=== PATIENT | female | born 1955 | race Caucasian/White ===

== ENCOUNTER 2018-03-05 10:56 | Day surgery (SDC) | payer OTHER ==
[~2018-03-05] VITALS: Ht 170.2 cm; Wt 99.4 kg
[~2018-03-05 10:56] MED LIST: ARIP10 PO; Adipex-P37.5 MG PO; BENZ2 PO; BUPR150ER PO; Benztropine Mesy1 MG PO; CEPH500 PO; Flomax0.4 MG PO; KETO10 PO; Keflex500 MG PO; LEXAPRO; Lexapro 2020 MG PO; MAGCIT300 PO; METF500 PO; MIRAPEX ER0.375 MG; Minocycline HC100 MG PO; OMEP20ER PO; OXYB5 PO; OXYC5 PO; Percocet 5-3251 EACH PO; Pyridium100 MG PO; SEROQUEL; TEGRETOL; TRAZADONE; TRILEPTAL; WELBUTRIN
== END 2018-03-05 14:02 | disposition home or self-care (01) ==
LOC: ORSCSDS 10:56
PROVIDERS: Orthopaedic Surgery
PROC: 01N54ZZ Release Median Nerve, Percutaneous Endoscopic Approach (ICD-10-PCS; principal; 2018-03-05 12:30)
DX: G56.01 Carpal tunnel syndrome, right upper limb (principal); E11.9 Type 2 diabetes mellitus without complications; I10 Essential (primary) hypertension; F32.9 Major depressive disorder, single episode, unspecified; K21.9 Gastro-esophageal reflux disease without esophagitis; G47.33 Obstructive sleep apnea (adult) (pediatric); E66.9 Obesity, unspecified; Z68.34 Body mass index [BMI] 34.0-34.9, adult; Z79.84 Long term (current) use of oral hypoglycemic drugs; Z79.899 Other long term (current) drug therapy
CPT/HCPCS: 82947; J0690; J2250; J3010; J7120

== ENCOUNTER → 2018-04-21 | Outpatient (CLI) | payer OTHER | END | disposition home or self-care (01) | LOC: LAB SHORT 13:55 → LAB 13:55 | DX: E11.9 Type 2 diabetes mellitus without complications (principal) | CPT/HCPCS: 82043 ==

== ENCOUNTER 2018-08-20 06:05 | Day surgery (SDC) | payer OTHER ==
[~2018-08-20] VITALS: Ht 167.6 cm; Wt 101.8 kg
--- NOTE | 2018-08-20 10:48 | NUR ---
08/20/18 1048 Manda Vizcarra V PT RESTING IN RECLINER, OPERATIVE LIMB ELEVATED AND ICE APPLIED. PT REPORTS PAIN 7/10 FOR WHICH SHE HAS BEEN MEDICATED PER ORDERS. VSS. PTS FAMILY MEMBER AT CHAIR-SIDE, PT TOLERATING PO NURISHMENT.
== END 2018-08-20 12:55 | disposition home or self-care (01) ==
LOC: ORSCSDS 06:05
PROVIDERS: Orthopaedic Surgery
PROC: 0RQT0ZZ Repair Left Carpometacarpal Joint, Open Approach (ICD-10-PCS; principal; 2018-08-20 07:30)
PROC: 0LX80ZZ Transfer Left Hand Tendon, Open Approach (ICD-10-PCS; principal; 2018-08-20 07:30)
DX: M18.12 Unilateral primary osteoarthritis of first carpometacarpal joint, left hand (principal); E11.9 Type 2 diabetes mellitus without complications; G47.33 Obstructive sleep apnea (adult) (pediatric); K21.9 Gastro-esophageal reflux disease without esophagitis; E66.01 Morbid (severe) obesity due to excess calories; Z68.36 Body mass index [BMI] 36.0-36.9, adult; Z79.899 Other long term (current) drug therapy
CPT/HCPCS: 82947; C1769; J0171; J0360; J0690; J1100; J2250; J2405; J3010; J7120

== ENCOUNTER 2018-08-22 18:56 | Emergency (ER) | payer OTHER ==
[~2018-08-22] VITALS: Ht 167.6 cm; Wt 102.1 kg
[2018-08-22] MEDS ORDERED: OXYC5 PO (19:34)
[2018-08-22] MEDS ORDERED: Zofran4 MG PO (19:36)
== END 2018-08-22 19:51 | disposition home or self-care (01) ==
LOC: ER 18:56
DX: R11.2 Nausea with vomiting, unspecified (principal); Z79.899 Other long term (current) drug therapy; Z79.84 Long term (current) use of oral hypoglycemic drugs; F32.9 Major depressive disorder, single episode, unspecified; Z90.49 Acquired absence of other specified parts of digestive tract
CPT/HCPCS: 99283

== ENCOUNTER → 2019-07-24 | Outpatient (CLI) | payer OTHER ==
[~2019-07-24] MED LIST changes: +ARMODAFINIL150 MG PO; +TOPI50 PO; +Zofran4 MG PO
== END | disposition home or self-care (01) ==
LOC: LAB EV 16:58 → LAB SHORT 16:58
DX: N39.0 Urinary tract infection, site not specified (principal)
CPT/HCPCS: 87086

== ENCOUNTER 2019-09-24 16:28 | Emergency (ER) | payer OTHER ==
[~2019-09-24] VITALS: Ht 170.2 cm; Wt 85.7 kg
[2019-09-24 17:27] LABS: Source, Urine Clean Catch
[2019-09-24 17:30] LABS: Bilirubin, Urine Neg (Neg); Blood, Urine Neg (Neg); Glucose Qualitative, Urine Neg (Neg); Ketones, Urine Neg (Neg); Leukocyte Esterase, Urine 1+ (Neg); Nitrite, Urine Neg (Neg); Protein, Urine Neg (Neg); Urobilinogen, Urine NORM (Normal)
[2019-09-24 17:42] LABS: Appearance, Urine Clear (Clear); Color, Urine Pale Yellow (P-Yellow)
[2019-09-24 17:44] LABS: Red Blood Cells, Urine 0-2 /hpf (0-2); Squamous Epithelial Cells Rare /hpf (Few)
[2019-09-24 17:45] LABS: Bacteria Rare /hpf
[2019-09-24] MEDS ORDERED: Phentermine HCl15 MG PO (20:19)
[2019-09-24] MEDS ORDERED: PRAM.5 PO (20:20)
[2019-09-24] MEDS ORDERED: HYDR1TAB94 PO (20:58)
[2019-09-24] MEDS ORDERED: MOTRIN IB200 MG PO (20:58)
== END 2019-09-24 21:00 | disposition home or self-care (01) ==
LOC: ER 16:28
PROVIDERS: Physician Assistant
DX: M43.16 Spondylolisthesis, lumbar region (principal); F31.9 Bipolar disorder, unspecified; G47.30 Sleep apnea, unspecified; Z79.899 Other long term (current) drug therapy; Z79.84 Long term (current) use of oral hypoglycemic drugs
CPT/HCPCS: 74176; 81001; 87086; 96372; 99284-25; J1885

== ENCOUNTER 2020-01-02 21:26 | Emergency (ER) | payer OTHER ==
[~2020-01-02] VITALS: Ht 170.2 cm; Wt 90.7 kg
[~2020-01-02 21:26] MED LIST changes: +HYDR1TAB94 PO; +MOTRIN IB200 MG PO; +PRAM.5 PO; +Phentermine HCl15 MG PO
[2020-01-02 22:32] LABS: Source, Urine Clean Catch
[2020-01-02 22:34] LABS: Bilirubin, Urine Neg (Neg); Blood, Urine 1+ (Neg); Glucose Qualitative, Urine Neg (Neg); Ketones, Urine Neg (Neg); Leukocyte Esterase, Urine Neg (Neg); Nitrite, Urine Neg (Neg); Protein, Urine Neg (Neg); Urobilinogen, Urine NORM (Normal)
[2020-01-02 22:41] LABS: BASOPHILS ABSOLUTE AUTO 0.11 K/mm3 (0.00-0.23); BASOPHILS PERCENT AUTO 1 % (0-2); EOSINOPHILS ABSOLUTE AUTO 0.56 K/mm3 (0.00-0.68); EOSINOPHILS PERCENT AUTO 4 % (0-6); Hematocrit 43.7 % (33.0-51.0); Hemoglobin 14.1 g/dL (11.5-16.0); IMMATURE GRAN ABSOLUTE AUTO 0.05 K/mm3 (0.00-0.10); IMMATURE GRAN PERCENT AUTO 0 % (0-1); LYMPHOCYTES ABSOLUTE AUTO 6.51 K/mm3 (0.84-5.20); LYMPHOCYTES PERCENT AUTO 48 % (21-46); MONOCYTES PERCENT AUTO 7 % (4-13); Mean Corpuscular HGB 29.5 pg (26.0-34.0); Mean Corpuscular HGB Conc 32.3 g/dL (31.5-36.5); Mean Corpuscular Volume 91 fL (80-100); Mean Platelet Volume 10.1 fL (9.1-12.4); NEUTROPHILS ABSOLUTE AUTO 5.55 K/mm3 (1.96-9.15); NEUTROPHILS PERCENT AUTO 41 % (41-73); Platelet Count 292 K/mm3 (150-400); RDW Standard Deviation 43.4 fL (35.1-46.3); Red Blood Cell Count 4.78 M/mm3 (3.80-5.20); White Blood Cell Count 13.68 K/mm3 (4.00-11.30)
[2020-01-02 22:46] LABS: Appearance, Urine Clear (Clear); Bacteria Not Seen /hpf; Color, Urine Yellow (P-Yellow); Red Blood Cells, Urine 0-2 /hpf (0-2); Squamous Epithelial Cells Not Seen /hpf (Few)
[2020-01-02 22:57] LABS: Alanine Aminotransfer (ALT/SGP 22 U/L (12-78); Albumin/Globulin Ratio 0.9 (0.8-1.8); Alk Phos 91 U/L (50-136); Anion Gap 9 mmol/L (6-16); Aspartate Aminotrans (AST/SGOT 16 U/L (12-37); Bilirubin, Total 0.3 mg/dL (0.1-1.0); Blood Urea Nitrogen 12 mg/dL (8-24); Bun/Creatinine Ratio 12.2 (12.0-20.0); CO2, Blood 21 mmol/L (21-32); Calcium, Blood 8.9 mg/dL (8.5-10.1); Chloride, Blood 109 mmol/L (98-108); Creatinine, Blood 0.98 mg/dL (0.40-1.00); Globulin, Blood 4.4 g/dL (2.2-4.0); Glomerular Filtration Rate >60 (60-); Glucose, Blood 116 mg/dL (70-99); Potassium, Blood 3.8 mmol/L (3.5-5.5); Sodium, Blood 139 mmol/L (136-145); Total Protein, Blood 8.4 g/dL (6.4-8.2)
[2020-01-02] MEDS ORDERED: Phentermine HCl15 MG PO (23:04)
[2020-01-02] MEDS ORDERED: ESCI20 PO (23:04)
[2020-01-02] MEDS ORDERED: METF500 PO (23:04)
[2020-01-02] MEDS ORDERED: TOPI50 PO (23:05)
[2020-01-02] MEDS ORDERED: OMEP20ER PO (23:05)
[2020-01-02] MEDS ORDERED: Benztropine Mesy1 MG PO (23:05)
[2020-01-02] MEDS ORDERED: BUPROPION XL150 M1 PO (23:05)
[2020-01-02] MEDS ORDERED: PRAM.5 PO (23:05)
[2020-01-02] MEDS ORDERED: NUVIGIL150 MG PO (23:06)
[2020-01-02] MEDS ORDERED: ARIP10 PO (23:06)
[2020-01-03] MEDS ORDERED: Flomax0.4 MG PO (00:28)
[2020-01-03] MEDS ORDERED: Roxicodone5 MG PO (00:28)
== END 2020-01-03 00:45 | disposition home or self-care (01) ==
LOC: ER 21:26
PROVIDERS: Emergency Medicine
DX: N13.2 Hydronephrosis with renal and ureteral calculous obstruction (principal); F32.9 Major depressive disorder, single episode, unspecified; Z79.899 Other long term (current) drug therapy; Z79.84 Long term (current) use of oral hypoglycemic drugs
CPT/HCPCS: 36415; 74176; 80053; 81001; 85025; 96374; 96375; 99284-25; A9270; J1170; J1885

== ENCOUNTER → 2020-05-05 | Outpatient (CLI) | payer OTHER ==
[~2020-05-05] MED LIST changes: +BUPROPION XL150 M1 PO; +ESCI20 PO; +NUVIGIL150 MG PO; +Roxicodone5 MG PO
== END ==
LOC: LAB SHORT 15:39 → LAB 15:39
DX: N39.0 Urinary tract infection, site not specified (principal)
CPT/HCPCS: 87077; 87086; 87186

== ENCOUNTER → 2020-06-30 | Outpatient (CLI) | payer OTHER ==
[2020-06-30 17:18] LABS: Source, Urine Clean Catch
[2020-06-30 18:17] LABS: Appearance, Urine Clear (Clear); Bilirubin, Urine Neg (Neg); Blood, Urine 5+ (Neg); Color, Urine Yellow (P-Yellow); Glucose Qualitative, Urine Neg (Neg); Ketones, Urine Neg (Neg); Leukocyte Esterase, Urine 3+ (Neg); Nitrite, Urine Neg (Neg); Protein, Urine 3+ (Neg); Urobilinogen, Urine NORM (Normal)
[2020-06-30 19:03] LABS: Squamous Epithelial Cells Few /hpf (Few)
[2020-06-30 19:04] LABS: Bacteria Mod /hpf
== END | disposition home or self-care (01) ==
LOC: LAB SHORT 17:13 → OLS 17:13
PROVIDERS: Urology
DX: N39.0 Urinary tract infection, site not specified (principal)
CPT/HCPCS: 81001; 87086

== ENCOUNTER → 2020-08-23 | Outpatient (CLI) | payer OTHER | END | disposition home or self-care (01) | LOC: LAB 10:00 → LAB SHORT 10:00 → LAB FUT 07-18 13:30 | DX: N20.0 Calculus of kidney (principal) | CPT/HCPCS: 81050 ==

== ENCOUNTER 2020-11-12 14:02 | Emergency (ER) | payer OTHER, SELFPAY ==
[~2020-11-12] VITALS: Ht 170.2 cm; Wt 93.4 kg
[2020-11-12] MEDS ORDERED: ATOR40TA PO (14:36)
[2020-11-12] MEDS ORDERED: GABA300 PO (14:37)
[2020-11-12] MEDS ORDERED: POTA10T PO (14:45)
[2020-11-12 14:46] LABS: BASOPHILS ABSOLUTE AUTO 0.08 K/mm3 (0.00-0.23); BASOPHILS PERCENT AUTO 1 % (0-2); EOSINOPHILS ABSOLUTE AUTO 0.33 K/mm3 (0.00-0.68); EOSINOPHILS PERCENT AUTO 2 % (0-6); Hematocrit 43.4 % (33.0-51.0); Hemoglobin 14.3 g/dL (11.5-16.0); IMMATURE GRAN ABSOLUTE AUTO 0.05 K/mm3 (0.00-0.10); IMMATURE GRAN PERCENT AUTO 0 % (0-1); LYMPHOCYTES ABSOLUTE AUTO 4.31 K/mm3 (0.84-5.20); LYMPHOCYTES PERCENT AUTO 30 % (21-46); MONOCYTES ABSOLUTE AUTO 0.97 K/mm3 (0.16-1.47); MONOCYTES PERCENT AUTO 7 % (4-13); Mean Corpuscular HGB 29.3 pg (26.0-34.0); Mean Corpuscular HGB Conc 32.9 g/dL (31.5-36.5); Mean Corpuscular Volume 89 fL (80-100); Mean Platelet Volume 10.2 fL (9.1-12.4); NEUTROPHILS ABSOLUTE AUTO 8.87 K/mm3 (1.96-9.15); NEUTROPHILS PERCENT AUTO 61 % (41-73); Platelet Count 261 K/mm3 (150-400); RDW Coefficient Variation 13.6 % (11.7-14.2); RDW Standard Deviation 44.9 fL (35.1-46.3); Red Blood Cell Count 4.88 M/mm3 (3.80-5.20); White Blood Cell Count 14.61 K/mm3 (4.00-11.30)
[2020-11-12 14:48] LABS: Appearance, Urine Hazy (Clear); Bilirubin, Urine Neg (Neg); Blood, Urine 2+ (Neg); Color, Urine Yellow (P-Yellow); Glucose Qualitative, Urine Neg (Neg); Ketones, Urine Neg (Neg); Leukocyte Esterase, Urine 3+ (Neg); Nitrite, Urine Neg (Neg); Protein, Urine 2+ (Neg); Urobilinogen, Urine NORM (Normal); pH, Urine 6.5 (5.0-8.0)
[2020-11-12 14:58] LABS: Albumin, Blood 3.8 g/dL (3.4-5.0); Albumin/Globulin Ratio 0.8 (0.8-1.8); Bilirubin, Total 0.4 mg/dL (0.1-1.0); Bun/Creatinine Ratio 8.7 (12.0-20.0); Calcium, Blood 9.2 mg/dL (8.5-10.1); Creatinine, Blood 1.03 mg/dL (0.40-1.00); Globulin, Blood 4.5 g/dL (2.2-4.0); Potassium, Blood 4.3 mmol/L (3.5-5.5); Total Protein, Blood 8.3 g/dL (6.4-8.2)
[2020-11-12 15:45] LABS: White Blood Cells, Urine TNTC /hpf (0-5)
[2020-11-12 15:48] LABS: Bacteria Many /hpf; Squamous Epithelial Cells Rare /hpf (Few)
== END 2020-11-12 18:22 | disposition short-term general hospital (02) ==
LOC: ER 14:02
PROVIDERS: Emergency Medicine
DX: A41.9 Sepsis, unspecified organism (principal); N13.6 Pyonephrosis; Z79.84 Long term (current) use of oral hypoglycemic drugs; Z79.899 Other long term (current) drug therapy
CPT/HCPCS: 36415; 74176; 80053; 81001; 83605; 83690; 85025; 87040; 87077; 87086; 87186; 96361; 96365; 96375; 99285-25; J0696; J1885; J7030

== ENCOUNTER 2020-11-20 15:32 | Emergency (ER) | payer OTHER ==
[~2020-11-20] VITALS: Ht 170.2 cm; Wt 90.7 kg
[~2020-11-20 15:32] MED LIST changes: +ATOR40TA PO; +GABA300 PO; +POTA10T PO
[2020-11-20 16:23] LABS: BASOPHILS ABSOLUTE AUTO 0.09 K/mm3 (0.00-0.23); BASOPHILS PERCENT AUTO 1 % (0-2); EOSINOPHILS PERCENT AUTO 3 % (0-6); Hematocrit 43.5 % (33.0-51.0); Hemoglobin 14.3 g/dL (11.5-16.0); IMMATURE GRAN ABSOLUTE AUTO 0.05 K/mm3 (0.00-0.10); IMMATURE GRAN PERCENT AUTO 0 % (0-1); LYMPHOCYTES ABSOLUTE AUTO 4.94 K/mm3 (0.84-5.20); LYMPHOCYTES PERCENT AUTO 40 % (21-46); MONOCYTES ABSOLUTE AUTO 0.88 K/mm3 (0.16-1.47); MONOCYTES PERCENT AUTO 7 % (4-13); Mean Corpuscular HGB 28.9 pg (26.0-34.0); Mean Corpuscular HGB Conc 32.9 g/dL (31.5-36.5); Mean Corpuscular Volume 88 fL (80-100); Mean Platelet Volume 9.9 fL (9.1-12.4); NEUTROPHILS ABSOLUTE AUTO 6.15 K/mm3 (1.96-9.15); NEUTROPHILS PERCENT AUTO 49 % (41-73); Platelet Count 312 K/mm3 (150-400); RDW Coefficient Variation 13.6 % (11.7-14.2); RDW Standard Deviation 43.8 fL (35.1-46.3); Red Blood Cell Count 4.95 M/mm3 (3.80-5.20); White Blood Cell Count 12.51 K/mm3 (4.00-11.30)
[2020-11-20 16:42] LABS: Albumin, Blood 3.9 g/dL (3.4-5.0); Albumin/Globulin Ratio 0.8 (0.8-1.8); Bilirubin, Total 0.3 mg/dL (0.1-1.0); Bun/Creatinine Ratio 9.2 (12.0-20.0); Calcium, Blood 9.4 mg/dL (8.5-10.1); Creatinine, Blood 1.3 mg/dL (0.40-1.00); Globulin, Blood 4.7 g/dL (2.2-4.0); Potassium, Blood 3.9 mmol/L (3.5-5.5); Total Protein, Blood 8.6 g/dL (6.4-8.2)
[2020-11-20 19:15] LABS: Source, Urine Clean Catch
[2020-11-20 19:31] LABS: Appearance, Urine Cloudy (Clear); Bilirubin, Urine Neg (Neg); Blood, Urine 5+ (Neg); Color, Urine Red (P-Yellow); Glucose Qualitative, Urine Neg (Neg); Ketones, Urine Neg (Neg); Leukocyte Esterase, Urine 3+ (Neg); Nitrite, Urine Neg (Neg); Protein, Urine 4+ (Neg); Urobilinogen, Urine NORM (Normal); pH, Urine 6.5 (5.0-8.0)
[2020-11-20 19:46] LABS: Bacteria Few /hpf; Red Blood Cells, Urine TNTC /hpf (0-2); Squamous Epithelial Cells Not Seen /hpf (Few)
== END 2020-11-20 23:10 | disposition home or self-care (01) ==
LOC: ER 15:32
PROVIDERS: Emergency Medicine
DX: R10.9 Unspecified abdominal pain (principal); Z79.899 Other long term (current) drug therapy; Z87.442 Personal history of urinary calculi
CPT/HCPCS: 36415; 76770; 80053; 81001; 83690; 85025; 87086; 99284-25

== ENCOUNTER → 2021-01-06 | Outpatient (CLI) | payer OTHER | END | disposition home or self-care (01) | LOC: CANPRECLI → OLS 14:37 → LAB SHORT 14:37 | DX: N20.0 Calculus of kidney (principal) | CPT/HCPCS: 81050 ==

== ENCOUNTER → 2021-01-19 | Outpatient (CLI) | payer OTHER ==
[2021-02-05 17:11] LABS: BRUSHITE 1.29 ratio (0.00-3.00); CALCIUM OXALATE 3.88 ratio (0.00-6.00); CALCIUM, URINE 4.1 mg/dL (Not Estab.); CHLORIDE URINE 236 (110-250); CITRIC ACID (CITRATE) 98 mg/L (Not Estab.); CITRIC ACID(CITRATE) 392 mg/24 hr (320-1240); CREATININE, URINE 34.8 mg/dL (Not Estab.); MAGNESIUM, URINE 1.6 mg/dL (Not Estab.); MONOSODIUM URATE 1.45 ratio (0.00-4.00); OSMOLALITY, URINE 255 (300-900); SODIUM, URINE 292 (39-258); SODIUM, URINE 73 mmol/L (Not Estab.); STRUVITE 0.06 ratio (0.00-1.00); URIC ACID 0.04 ratio (0.00-1.20); URINE VOLUME 4000 mL/24 hr (600-1600); URINE VOLUME (PRESERVATIVE) 4000 mL/24 hr (600-1600)
== END | disposition home or self-care (01) ==
LOC: LAB SHORT 10:00 → LAB 10:00
PROVIDERS: Urology
DX: N20.0 Calculus of kidney (principal)
CPT/HCPCS: 81003; 81050; 82131; 82140; 82340; 82436; 82507; 82570; 83735; 83935; 83945; 84105; 84133; 84300; 84392; 84560

== ENCOUNTER → 2021-03-09 | Outpatient (CLI) | payer OTHER ==
[2021-03-09 15:19] LABS: Bacteria Few /hpf; Calcium Oxalate Crystals Many /hpf; Red Blood Cells, Urine 0-2 /hpf (0-2); Squamous Epithelial Cells Few /hpf (Few); Transitional Epithelial Cells Few /hpf (0-Rare)
== END | disposition home or self-care (01) ==
LOC: LAB SHORT 13:29
PROVIDERS: Internal Medicine
DX: N39.0 Urinary tract infection, site not specified (principal)
CPT/HCPCS: 81015; 87086

== ENCOUNTER 2021-03-26 00:09 | Emergency (ER) | payer OTHER ==
[~2021-03-26] VITALS: Ht 170.2 cm; Wt 97.5 kg
[2021-03-26 01:38] LABS: Source, Urine Clean Catch
[2021-03-26 01:40] LABS: Bilirubin, Urine Neg (Neg); Blood, Urine 5+ (Neg); Glucose Qualitative, Urine Neg (Neg); Ketones, Urine Neg (Neg); Leukocyte Esterase, Urine 3+ (Neg); Nitrite, Urine Neg (Neg); Protein, Urine 3+ (Neg); Urobilinogen, Urine NORM (Normal)
[2021-03-26 01:41] LABS: Appearance, Urine Cloudy (Clear); Color, Urine Yellow (P-Yellow)
[2021-03-26 01:50] LABS: White Blood Cells, Urine TNTC /hpf (0-5)
[2021-03-26 01:51] LABS: Bacteria Many /hpf; Red Blood Cells, Urine 50-100 /hpf (0-2); Squamous Epithelial Cells Not Seen /hpf (Few)
[2021-03-26] MEDS ORDERED: Macrobid 100 M100 MG PO (03:13)
== END 2021-03-26 03:43 | disposition home or self-care (01) ==
LOC: ER 00:09
PROVIDERS: Student in an Organized Health Care Education/Training Program
DX: N39.0 Urinary tract infection, site not specified (principal); R73.03 Prediabetes; Z79.899 Other long term (current) drug therapy; Z79.84 Long term (current) use of oral hypoglycemic drugs; Z87.442 Personal history of urinary calculi
CPT/HCPCS: 81001; 87086; 99284; A9270

== ENCOUNTER → 2021-08-23 | Outpatient (CLI) | payer MEDICARE, OTHER ==
[~2021-08-23] MED LIST changes: +Macrobid 100 M100 MG PO
[2021-08-27 15:10] LABS: HPV 16 Negative (Negative); HPV 18 Negative (Negative); HPV OTHER HR TYPES Negative (Negative)
== END | disposition home or self-care (01) ==
LOC: LAB SHORT 15:42
PROVIDERS: Family Medicine
DX: Z01.419 Encounter for gynecological examination (general) (routine) without abnormal findings (principal)
CPT/HCPCS: 87624; G0123

== ENCOUNTER → 2021-09-10 | Outpatient (CLI) | payer OTHER | END | disposition home or self-care (01) | LOC: LAB 12:00 → LAB SHORT 12:00 → LAB FUT 09-06 14:45 | DX: N20.0 Calculus of kidney (principal) | CPT/HCPCS: 81050 ==

== ENCOUNTER → 2021-10-04 | Outpatient (CLI) | payer OTHER | END | disposition home or self-care (01) | LOC: LAB SHORT 14:10 | DX: N20.0 Calculus of kidney (principal) | CPT/HCPCS: 81050 ==

== ENCOUNTER → 2021-12-20 | Outpatient (CLI) | payer OTHER ==
[~2021-12-20] MED LIST changes: +BISA5EC PO; +SENNA LAXATIVE8.6 MG PO
== END | disposition home or self-care (01) ==
LOC: LAB SHORT 16:00 → LAB 16:00
DX: N39.0 Urinary tract infection, site not specified (principal)
CPT/HCPCS: 87077; 87086; 87186

== ENCOUNTER 2021-12-23 | Inpatient (IN) | payer OTHER ==
[~2021-12-23] VITALS: Ht 170.2 cm; Wt 103.0 kg
[~2021-12-23] MED LIST changes: -BISA5EC PO; -SENNA LAXATIVE8.6 MG PO
[2021-12-23 03:57] LABS: BASOPHILS ABSOLUTE AUTO 0.06 K/mm3 (0.00-0.23); BASOPHILS PERCENT AUTO 1 % (0-2); EOSINOPHILS ABSOLUTE AUTO 0.44 K/mm3 (0.00-0.68); EOSINOPHILS PERCENT AUTO 4 % (0-6); Hematocrit 42.5 % (33.0-51.0); Hemoglobin 13.7 g/dL (11.5-16.0); IMMATURE GRAN ABSOLUTE AUTO 0.06 K/mm3 (0.00-0.10); IMMATURE GRAN PERCENT AUTO 1 % (0-1); LYMPHOCYTES ABSOLUTE AUTO 3.48 K/mm3 (0.84-5.20); LYMPHOCYTES PERCENT AUTO 28 % (21-46); MONOCYTES PERCENT AUTO 7 % (4-13); Mean Corpuscular HGB 29.8 pg (26.0-34.0); Mean Corpuscular HGB Conc 32.2 g/dL (31.5-36.5); Mean Corpuscular Volume 93 fL (80-100); Mean Platelet Volume 10.7 fL (9.1-12.4); NEUTROPHILS ABSOLUTE AUTO 7.33 K/mm3 (1.96-9.15); NEUTROPHILS PERCENT AUTO 60 % (41-73); Platelet Count 241 K/mm3 (150-400); RDW Coefficient Variation 13.1 % (11.7-14.2); RDW Standard Deviation 44.3 fL (35.1-46.3); Red Blood Cell Count 4.59 M/mm3 (3.80-5.20); White Blood Cell Count 12.27 K/mm3 (4.00-11.30)
[2021-12-23 04:12] LABS: Alanine Aminotransfer (ALT/SGP 27 U/L (12-78); Albumin, Blood 3.6 g/dL (3.4-5.0); Albumin/Globulin Ratio 0.9 (0.8-1.8); Alk Phos 115 U/L (50-136); Anion Gap 8 mmol/L (6-16); Aspartate Aminotrans (AST/SGOT 23 U/L (12-37); Bilirubin, Total 0.3 mg/dL (0.1-1.0); Blood Urea Nitrogen 10 mg/dL (8-24); Bun/Creatinine Ratio 10.9 (12.0-20.0); CO2, Blood 23 mmol/L (21-32); Calcium, Blood 8.8 mg/dL (8.5-10.1); Chloride, Blood 110 mmol/L (98-108); Creatinine, Blood 0.92 mg/dL (0.40-1.00); Globulin, Blood 4.1 g/dL (2.2-4.0); Glomerular Filtration Rate >60 (60-); Glucose, Blood 204 mg/dL (70-99); Potassium, Blood 3.7 mmol/L (3.5-5.5); Sodium, Blood 141 mmol/L (136-145); Total Protein, Blood 7.7 g/dL (6.4-8.2)
[2021-12-23 05:37] LABS: Source, Urine Clean Catch
[2021-12-23 05:40] LABS: Bilirubin, Urine Neg (Neg); Glucose Qualitative, Urine Neg (Neg); Ketones, Urine Neg (Neg); Urobilinogen, Urine NORM (Normal)
[2021-12-23 05:44] LABS: Blood, Urine 3+ (Neg); Leukocyte Esterase, Urine 3+ (Neg); Nitrite, Urine Pos (Neg); Protein, Urine 2+ (Neg); Specific Gravity, Urine 1.025 (1.003-1.022)
[2021-12-23 05:51] LABS: Appearance, Urine Cloudy (Clear); Color, Urine Yellow (P-Yellow)
[2021-12-23 06:00] LABS: White Blood Cells, Urine 50-100 /hpf (0-5)
[2021-12-23 06:02] LABS: Red Blood Cells, Urine 25-50 /hpf (0-2); Squamous Epithelial Cells Rare /hpf (Few)
[2021-12-23 06:03] LABS: Bacteria Many /hpf
[2021-12-23] MEDS ORDERED: SENNA LAXATIVE8.6 MG PO (08:15)
[2021-12-23] MEDS ORDERED: BISA5EC PO (08:15)
[2021-12-23 08:59] LABS: Influenza A, PCR NEGATIVE (NEGATIVE); Influenza B, PCR NEGATIVE (NEGATIVE); Resp Syncytial Virus, PCR NEGATIVE (NEGATIVE); SARS-Cov-2 (COVID-19) PCR, MMC NEGATIVE (NEGATIVE)
--- NOTE | 2021-12-23 10:20 | NUR ---
PT PLEASANT AND NICE. A/O X4. C/O PAIN IN LT FLANK AND FEET. MEDICATED PER EMAR. H/R REGUALR. NO TELE. NO MURMUR NOTED. LUNGS CLEAR BILATERALLY. BREATHING IS UNLABORED AND EASY. PT STATES LAST BOWEL MOVEMENT WAS LAST NIGHT. PT IS INDEPENDENT IN ROOM. WALKS AROUND WITHOUT DIFFICULTY. NO EDEMA PRESENT. BED IN LOW POSITION, CALL LIGHT IN REACH, CALLS APPROPRIATLY.
--- NOTE | 2021-12-23 11:00 | NUR ---
PT PLEASANT COOP A/O X3. DENIES PAIN AT THIS TIME. STATES WHEN DOES HAVE PAIN, IS USUALLY SHARP ON LEFT FLANK. THEN SUBSIDES. SOME ANXIOUS. H/R REG, NO TELE. NO MURMUR NOTED. LUNGS CLEAR, RESP EASY, UNLABORED. QUITE TALKATIVE. BT X4 LAST BM YEST PER PT. VOIDS PER BATHROOM. INDEPENDANT IN ROOM. URINE HAT IN TOILET AND STRAINER PLACED TO MONITOR FOR ANY PASSAGE OF STONES. BED IN LOW POSITION, CALL LITE IN REACH, CALLS APPROP
--- NOTE | 2021-12-23 17:06 | NUR ---
PT PLEASANT AND COOPERATIVE WITH CARE. A/O X4. AWAITING POSSIBLE TRANSFER TO [place]. NO C./O PAIN. NO TELE. H/R REGULAR. NO MUMUR NOTED. ON ROOM AIR. BREATHING IS UNLABORED AND EASY. RT IN ROOM RIGHT NOW TO SET UP CPAP FOR PT. PT AMBULATES INDEPENDENTLY TO RESTROOM. VISIBLY SEEN AMBULATING ROOM. URINE IS BEING STRAINED TO CHECK FOR KIDNEYSTONES. BED IN LOW POSITION, CALL LIGHT IN REACH, CALLS APPROPRIATLY.
--- NOTE | 2021-12-23 17:27 | NUR ---
AGREE WITH STUDENT NOTES.
--- NOTE | 2021-12-24 04:47 | NUR ---
SHIFT SUMMARY PT RESTED WELL, NO C/O PAIN THIS SHIFT, TANYA PO WELL, IVF INFUSING PER ORDERS. PT UP INDEPENDENTLY IN ROOM, VOIDING WITHOUT DIFFICULTY, URINE STRAINED AND NO STONES NOTED THIS SHIFT. VSS, ANTICIPATE D/C WHEN MEDICALLY STABLE. PT WEARING CPAP AT NIGHT PER HOME ROUTINE.
[2021-12-24 11:08] LABS: BASOPHILS ABSOLUTE AUTO 0.05 K/mm3 (0.00-0.23); BASOPHILS PERCENT AUTO 1 % (0-2); EOSINOPHILS PERCENT AUTO 4 % (0-6); Hemoglobin 12.8 g/dL (11.5-16.0); IMMATURE GRAN ABSOLUTE AUTO 0.03 K/mm3 (0.00-0.10); IMMATURE GRAN PERCENT AUTO 0 % (0-1); LYMPHOCYTES ABSOLUTE AUTO 2.81 K/mm3 (0.84-5.20); LYMPHOCYTES PERCENT AUTO 38 % (21-46); MONOCYTES ABSOLUTE AUTO 0.54 K/mm3 (0.16-1.47); MONOCYTES PERCENT AUTO 7 % (4-13); Mean Corpuscular HGB 30.3 pg (26.0-34.0); Mean Corpuscular HGB Conc 32.8 g/dL (31.5-36.5); Mean Corpuscular Volume 92 fL (80-100); Mean Platelet Volume 10.3 fL (9.1-12.4); NEUTROPHILS ABSOLUTE AUTO 3.73 K/mm3 (1.96-9.15); NEUTROPHILS PERCENT AUTO 50 % (41-73); Platelet Count 211 K/mm3 (150-400); Red Blood Cell Count 4.22 M/mm3 (3.80-5.20); White Blood Cell Count 7.46 K/mm3 (4.00-11.30)
[2021-12-24 11:20] LABS: Albumin, Blood 3.2 g/dL (3.4-5.0); Anion Gap 7 mmol/L (6-16); Blood Urea Nitrogen 10 mg/dL (8-24); Bun/Creatinine Ratio 11.3 (12.0-20.0); CO2, Blood 22 mmol/L (21-32); Calcium, Blood 8.8 mg/dL (8.5-10.1); Chloride, Blood 112 mmol/L (98-108); Creatinine, Blood 0.88 mg/dL (0.40-1.00); Glomerular Filtration Rate >60 (60-); Glucose, Blood 124 mg/dL (70-99); Phosphorus, Blood 3.2 mg/dL (2.5-4.9); Potassium, Blood 4.1 mmol/L (3.5-5.5); Sodium, Blood 141 mmol/L (136-145)
--- NOTE | 2021-12-24 17:05 | NUR ---
SHIFT SUMMARY PT REPORTS CONTINUED INTERMITTENT PAIN WITH URINATION. MAINLY ON THE RIGHT SIDE AT THIS TIME. PAIN IS BURNING AND PATIENT REPORTS IT RADIATES TO HER SHOULDERS AND DOWN TO THE HANDS. MINIMAL PAIN OTHERWISE. INDEPENDANT IN ROOM. CURRENTLY AWAITING A BED AT [facility].
--- NOTE | 2021-12-25 04:27 | NUR ---
66 YR F ADMITTED ON 12/24/21 FOR KIDNEY STONES. FULL CODE. PT REPORTED MILD PAIN THIS SHIFT AND WAS MEDICATED PER EMAR. SHE STATED SHE WANTED TO STAY ON TOP OF THE PAIN AND NOT LET IT GET TO BAD BEFORE ADRESSING IT. PAIN MEDS GIVEN AT A PAIN LEVEL OF 2. PT IS PLEASANT AND COOPERATIVE AND IS INDEPENDANT IN ROOM. URINE WAS SCREENED FOR STONES BUT NONE DETECTED SO FAR. PT IS WAITING FOR PLACEMENT AT [facility].
[2021-12-25 17:45] LABS: Influenza A, PCR NEGATIVE (NEGATIVE); Influenza B, PCR NEGATIVE (NEGATIVE); Resp Syncytial Virus, PCR NEGATIVE (NEGATIVE); SARS-Cov-2 (COVID-19) PCR, MMC NEGATIVE (NEGATIVE)
--- NOTE | 2021-12-25 18:16 | NUR ---
SHIFT SUMMARY A/OX4, IND IN ROOM. C/O MILD PAIN TO L. FLANK, MEDICATED PER EMAR. PLAN IS TO D/C AT TOMORROW 12/26 AT 9AM FOR OUTPATIENT LITHOTRIPSY. PROCEDURE WILL BE AT [facility] IN [place] AT 230. PT AWARE, RAPID COVID NEGATIVE. VSS, NO ACUTE CHANGES AT THIS TIME. BED IN LOWEST POSITION WITH CALL LIGHT IN REACH. WILL CONTINUE TO MONITOR AND REPORT TO ONCOMING RN.
--- NOTE | 2021-12-26 04:59 | NUR ---
SHIFT SUMMARY PT RESTED WELL, MED PER OCT X 1 FOR C/O BILAT FLANK PAIN. PT UP INDEPENDENTLY IN ROOM, VOIDING WITHOUT DIFFICULTY, VSS. PT SHOWERED, TANYA PO WELL, NPO AFTER MIDNIGHT FOR SCHEDULED PROCEDURE TODAY IN [place]. PT EXPECTED TO D/C AT AROUND 0900 THIS AM TO GO TO OUTPATIENT PROCEDURE.
[2021-12-26] MEDS ORDERED: LEVFLO500 PO (08:02)
[2021-12-26] MEDS ORDERED: TAMS.4ER PO (08:03)
[2021-12-26] MEDS ORDERED: TRAM50 PO (08:03)
--- NOTE | 2021-12-26 12:13 | NUR ---
PT DISCHARGED WITH INSTRUCTIONS AND SCRIPT FOR TRAMADOL. AND MOM WILL TRANSPORT PT TO [facility] IN [place] FOR LITHOTRIPSY PROCEDURE. PT HAS BEEN NPO SINCE [place] EXCEPT FOR AM MEDS. MEDICATED FOR PAIN WITH TRAMADOL IV PRIOR TO DISCHARGE.
== END 2021-12-26 09:03 | disposition home or self-care (01) | DRG 690 ==
LOC: ER → MEDS 00:01
PROVIDERS: Emergency Medicine; Student in an Organized Health Care Education/Training Program; ADMIT Family Medicine
DX: N13.6 Pyonephrosis (principal); N21.1 Calculus in urethra; F32.A Depression, unspecified; M79.2 Neuralgia and neuritis, unspecified; R30.0 Dysuria; G47.30 Sleep apnea, unspecified; F43.10 Post-traumatic stress disorder, unspecified; Z20.822 Contact with and (suspected) exposure to COVID-19; E11.40 Type 2 diabetes mellitus with diabetic neuropathy, unspecified; D72.829 Elevated white blood cell count, unspecified; B96.20 Unspecified Escherichia coli [E. coli] as the cause of diseases classified elsewhere; E78.5 Hyperlipidemia, unspecified; Z96.652 Presence of left artificial knee joint; Z98.51 Tubal ligation status; Z87.442 Personal history of urinary calculi; Z90.49 Acquired absence of other specified parts of digestive tract; Z98.890 Other specified postprocedural states; Z79.84 Long term (current) use of oral hypoglycemic drugs; Z79.899 Other long term (current) drug therapy
CPT/HCPCS: 0241U; 36415; 74176; 80053; 80069; 81001; 82947; 85025; 87077; 87086; 87186; 94660; 96374; 96375; 99285-25; A9270; G0378; J0696; J1885; J7030; J7120

== ENCOUNTER → 2022-01-24 | Outpatient (CLI) | payer OTHER ==
[~2022-01-24] MED LIST changes: +BISA5EC PO; +LEVFLO500 PO; +SENNA LAXATIVE8.6 MG PO; +TAMS.4ER PO; +TRAM50 PO
== END | disposition home or self-care (01) ==
LOC: LAB 15:08 → LAB SHORT 15:08
DX: R82.992 Hyperoxaluria (principal); Z87.442 Personal history of urinary calculi
CPT/HCPCS: 87086

== ENCOUNTER 2022-04-26 13:23 | Emergency (ER) | payer OTHER ==
[~2022-04-26] VITALS: Ht 170.2 cm; Wt 103.0 kg
[2022-04-26 14:33] LABS: BASOPHILS ABSOLUTE AUTO 0.08 K/mm3 (0.00-0.23); BASOPHILS PERCENT AUTO 1 % (0-2); EOSINOPHILS ABSOLUTE AUTO 0.63 K/mm3 (0.00-0.68); EOSINOPHILS PERCENT AUTO 5 % (0-6); Hemoglobin 14.3 g/dL (11.5-16.0); IMMATURE GRAN ABSOLUTE AUTO 0.05 K/mm3 (0.00-0.10); IMMATURE GRAN PERCENT AUTO 0 % (0-1); LYMPHOCYTES ABSOLUTE AUTO 4.42 K/mm3 (0.84-5.20); LYMPHOCYTES PERCENT AUTO 36 % (21-46); MONOCYTES ABSOLUTE AUTO 0.85 K/mm3 (0.16-1.47); MONOCYTES PERCENT AUTO 7 % (4-13); Mean Corpuscular HGB 29.1 pg (26.0-34.0); Mean Corpuscular HGB Conc 32.5 g/dL (31.5-36.5); Mean Corpuscular Volume 89 fL (80-100); Mean Platelet Volume 10.1 fL (9.1-12.4); NEUTROPHILS ABSOLUTE AUTO 6.25 K/mm3 (1.96-9.15); NEUTROPHILS PERCENT AUTO 51 % (41-73); Platelet Count 264 K/mm3 (150-400); RDW Coefficient Variation 13.2 % (11.7-14.2); RDW Standard Deviation 43.2 fL (35.1-46.3); Red Blood Cell Count 4.92 M/mm3 (3.80-5.20); White Blood Cell Count 12.28 K/mm3 (4.00-11.30)
[2022-04-26 14:38] LABS: Albumin, Blood 3.5 g/dL (3.4-5.0); Albumin/Globulin Ratio 0.8 (0.8-1.8); Bilirubin, Total 0.4 mg/dL (0.1-1.0); Bun/Creatinine Ratio 14.5 (12.0-20.0); Calcium, Blood 9.1 mg/dL (8.5-10.1); Creatinine, Blood 0.83 mg/dL (0.40-1.00); Globulin, Blood 4.5 g/dL (2.2-4.0)
== END 2022-04-26 16:18 | disposition home or self-care (01) ==
LOC: ER 13:23
PROVIDERS: Physician Assistant
DX: R07.9 Chest pain, unspecified (principal); M54.2 Cervicalgia
CPT/HCPCS: 36415; 71045; 80053; 84484; 85025; 93005; 93010

== ENCOUNTER → 2022-05-02 | Outpatient (CLI) | payer OTHER ==
[2022-05-02 14:02] LABS: CHOL/HDL RATIO 2.6; Cholesterol 162 mg/dL (50-200); HDL Cholesterol 62 mg/dL (>39); Low Density Lipoprotein Chol 60 mg/dL (0-110); Triglycerides 202 mg/dL (30-160); Very Low Density Lipoprot Chol 40 mg/dL (6-32)
== END | disposition home or self-care (01) ==
LOC: LAB SHORT 08:45
PROVIDERS: Internal Medicine
DX: E78.5 Hyperlipidemia, unspecified (principal); R73.01 Impaired fasting glucose
CPT/HCPCS: 80061; 83036

== ENCOUNTER 2022-07-05 12:10 | Day surgery (SDC) | payer OTHER ==
[~2022-07-05] VITALS: Ht 170.2 cm; Wt 107.8 kg
--- NOTE | 2022-07-05 16:33 | NUR ---
07/05/22 1633 Deonte Saez TYPE OF WEIGHT BEARING RESTRICTIONS NOT SPECIFIED IN CHART. PT SHOULD BE WEIGHT BEARING TOLERATED WITH POST-OP SHOE, PER NGHIA AT DR. LAGUNA'S OFFICE. PT WAS INSTRUCTED ACCORDINGLY.
== END 2022-07-05 16:20 | disposition home or self-care (01) ==
LOC: ORSCSDS 12:10
PROVIDERS: Podiatrist Foot & Ankle Surgery
PROC: 0QBN0ZZ Excision of Right Metatarsal, Open Approach (ICD-10-PCS; principal; 2022-07-05 13:50)
PROC: 0QBQ0ZZ Excision of Right Toe Phalanx, Open Approach (ICD-10-PCS; principal; 2022-07-05 13:50)
PROC: 0QSN04Z Reposition Right Metatarsal with Internal Fixation Device, Open Approach (ICD-10-PCS; principal; 2022-07-05 13:50)
DX: M20.5X1 Other deformities of toe(s) (acquired), right foot (principal); E11.9 Type 2 diabetes mellitus without complications; E66.9 Obesity, unspecified; Z68.37 Body mass index [BMI] 37.0-37.9, adult; Z79.899 Other long term (current) drug therapy
CPT/HCPCS: 82947; J0171; J0690; J2250; J2370; J2704; J2795; J3010; J7120

== ENCOUNTER → 2022-07-30 | Outpatient (CLI) | payer OTHER | END | disposition home or self-care (01) | LOC: LAB SHORT 09:10 → LAB 09:10 → LAB FUT 04-01 15:55 | DX: R82.992 Hyperoxaluria (principal) | CPT/HCPCS: 81050 ==

== ENCOUNTER 2022-08-15 04:56 | Emergency (ER) | payer OTHER ==
[~2022-08-15] VITALS: Ht 170.2 cm; Wt 112.0 kg
[2022-08-15 05:46] LABS: Albumin, Blood 3.5 g/dL (3.4-5.0); Albumin/Globulin Ratio 0.8 (0.8-1.8); Bilirubin, Total 0.3 mg/dL (0.1-1.0); Calcium, Blood 9.1 mg/dL (8.5-10.1); Creatinine, Blood 0.94 mg/dL (0.40-1.00); Globulin, Blood 4.4 g/dL (2.2-4.0); Potassium, Blood 4.5 mmol/L (3.5-5.5); Total Protein, Blood 7.9 g/dL (6.4-8.2)
[2022-08-15 05:49] LABS: BASOPHILS ABSOLUTE AUTO 0.05 K/mm3 (0.00-0.23); BASOPHILS PERCENT AUTO 0 % (0-2); EOSINOPHILS ABSOLUTE AUTO 0.02 K/mm3 (0.00-0.68); EOSINOPHILS PERCENT AUTO 0 % (0-6); Hematocrit 41.6 % (33.0-51.0); IMMATURE GRAN ABSOLUTE AUTO 0.24 K/mm3 (0.00-0.10); IMMATURE GRAN PERCENT AUTO 2 % (0-1); LYMPHOCYTES ABSOLUTE AUTO 3.15 K/mm3 (0.84-5.20); LYMPHOCYTES PERCENT AUTO 20 % (21-46); MONOCYTES ABSOLUTE AUTO 0.92 K/mm3 (0.16-1.47); MONOCYTES PERCENT AUTO 6 % (4-13); Mean Corpuscular HGB 29.6 pg (26.0-34.0); Mean Corpuscular HGB Conc 33.7 g/dL (31.5-36.5); Mean Corpuscular Volume 88 fL (80-100); NEUTROPHILS ABSOLUTE AUTO 11.55 K/mm3 (1.96-9.15); NEUTROPHILS PERCENT AUTO 73 % (41-73); RDW Coefficient Variation 13.2 % (11.7-14.2); RDW Standard Deviation 42.6 fL (35.1-46.3); Red Blood Cell Count 4.73 M/mm3 (3.80-5.20); White Blood Cell Count 15.93 K/mm3 (4.00-11.30)
[2022-08-15 06:02] LABS: Mean Platelet Volume 10.9 fL (9.1-12.4)
[2022-08-15 06:11] LABS: Platelet Count 235 K/mm3 (150-400)
== END 2022-08-15 09:00 | disposition home or self-care (01) ==
LOC: ER 04:56
PROVIDERS: Emergency Medicine
DX: R07.9 Chest pain, unspecified (principal); I25.10 Atherosclerotic heart disease of native coronary artery without angina pectoris; R73.03 Prediabetes; Z79.899 Other long term (current) drug therapy
CPT/HCPCS: 71045; 80053; 84484; 85025; 93005; 93010

== ENCOUNTER 2022-09-08 17:27 | Emergency (ER) | payer OTHER ==
[~2022-09-08] VITALS: Ht 170.2 cm; Wt 112.0 kg
[2022-09-08 18:30] LABS: BASOPHILS ABSOLUTE AUTO 0.08 K/mm3 (0.00-0.23); BASOPHILS PERCENT AUTO 1 % (0-2); EOSINOPHILS ABSOLUTE AUTO 0.36 K/mm3 (0.00-0.68); EOSINOPHILS PERCENT AUTO 3 % (0-6); Hemoglobin 14.5 g/dL (11.5-16.0); IMMATURE GRAN ABSOLUTE AUTO 0.06 K/mm3 (0.00-0.10); IMMATURE GRAN PERCENT AUTO 1 % (0-1); LYMPHOCYTES ABSOLUTE AUTO 5.55 K/mm3 (0.84-5.20); LYMPHOCYTES PERCENT AUTO 53 % (21-46); MONOCYTES ABSOLUTE AUTO 0.66 K/mm3 (0.16-1.47); MONOCYTES PERCENT AUTO 6 % (4-13); Mean Corpuscular HGB 29.8 pg (26.0-34.0); Mean Corpuscular HGB Conc 33.7 g/dL (31.5-36.5); Mean Corpuscular Volume 88 fL (80-100); Mean Platelet Volume 10.5 fL (9.1-12.4); NEUTROPHILS ABSOLUTE AUTO 3.81 K/mm3 (1.96-9.15); NEUTROPHILS PERCENT AUTO 36 % (41-73); Platelet Count 249 K/mm3 (150-400); RDW Coefficient Variation 13.1 % (11.7-14.2); RDW Standard Deviation 42.4 fL (35.1-46.3); Red Blood Cell Count 4.87 M/mm3 (3.80-5.20); White Blood Cell Count 10.52 K/mm3 (4.00-11.30)
[2022-09-08 18:52] LABS: Albumin, Blood 3.5 g/dL (3.4-5.0); Albumin/Globulin Ratio 0.8 (0.8-1.8); Bilirubin, Total 0.4 mg/dL (0.1-1.0); Bun/Creatinine Ratio 10.4 (12.0-20.0); Calcium, Blood 9.6 mg/dL (8.5-10.1); Creatinine, Blood 0.77 mg/dL (0.40-1.00); Globulin, Blood 4.4 g/dL (2.2-4.0); Potassium, Blood 5.2 mmol/L (3.5-5.5); Total Protein, Blood 7.9 g/dL (6.4-8.2)
== END 2022-09-08 21:35 | disposition home or self-care (01) ==
LOC: ER 17:27
PROVIDERS: Physician Assistant
DX: R07.9 Chest pain, unspecified (principal); R00.2 Palpitations; R73.03 Prediabetes; G47.30 Sleep apnea, unspecified; Z79.899 Other long term (current) drug therapy
CPT/HCPCS: 36415; 71046; 80053; 83880; 84484; 85025; 93005; 93010

== ENCOUNTER → 2022-11-17 | Outpatient (CLI) | payer OTHER | END | disposition home or self-care (01) | LOC: LAB SHORT 08:30 → LAB 08:30 → EDSTATUS 09-25 09:20 → LAB FUT 09-25 09:20 | DX: N20.0 Calculus of kidney (principal); R82.991 Hypocitraturia | CPT/HCPCS: 81050 ==

== ENCOUNTER → 2022-11-26 | Outpatient (CLI) | payer OTHER | END | disposition home or self-care (01) | LOC: LAB SHORT 13:40 → LAB 13:40 | DX: N20.0 Calculus of kidney (principal) | CPT/HCPCS: 87086; 87147 ==

== ENCOUNTER → 2023-07-08 | Outpatient (CLI) | payer OTHER ==
[2023-07-10 14:08] LABS: HPV 16 Negative (Negative); HPV 18 Negative (Negative); HPV OTHER HR TYPES Negative (Negative)
== END ==
LOC: LAB SHORT 12:44 → LAB 12:44
PROVIDERS: Registered Nurse Community Health
DX: Z12.4 Encounter for screening for malignant neoplasm of cervix (principal)
CPT/HCPCS: 87624; G0145

== ENCOUNTER 2023-12-13 15:00 | Emergency (ER) | payer OTHER ==
[~2023-12-13] VITALS: Ht 165.1 cm; Wt 83.5 kg
[~2023-12-13 15:00] MED LIST changes: +AMLO5 PO; +Budeprion Xl300 MG PO; +MULVITA PO; +PRAM.125 PO; +PREG75 PO
[2023-12-13 15:23] LABS: BASOPHILS ABSOLUTE AUTO 0.06 K/mm3 (0.00-0.23); BASOPHILS PERCENT AUTO 1 % (0-2); EOSINOPHILS ABSOLUTE AUTO 0.17 K/mm3 (0.00-0.68); EOSINOPHILS PERCENT AUTO 2 % (0-6); Hematocrit 44.1 % (33.0-51.0); Hemoglobin 14.6 g/dL (11.5-16.0); IMMATURE GRAN ABSOLUTE AUTO 0.02 K/mm3 (0.00-0.10); IMMATURE GRAN PERCENT AUTO 0 % (0-1); LYMPHOCYTES PERCENT AUTO 42 % (21-46); MONOCYTES ABSOLUTE AUTO 0.75 K/mm3 (0.16-1.47); MONOCYTES PERCENT AUTO 7 % (4-13); Mean Corpuscular HGB 30.4 pg (26.0-34.0); Mean Corpuscular HGB Conc 33.1 g/dL (31.5-36.5); Mean Corpuscular Volume 92 fL (80-100); Mean Platelet Volume 11.1 fL (9.1-12.4); NEUTROPHILS ABSOLUTE AUTO 5.55 K/mm3 (1.96-9.15); NEUTROPHILS PERCENT AUTO 49 % (41-73); Platelet Count 189 K/mm3 (150-400); RDW Coefficient Variation 14.5 % (11.7-14.2); RDW Standard Deviation 49.2 fL (35.1-46.3); White Blood Cell Count 11.35 K/mm3 (4.00-11.30)
[2023-12-13 15:48] LABS: Albumin, Blood 3.7 g/dL (3.4-5.0); Albumin/Globulin Ratio 0.9 (0.8-1.8); Bilirubin, Total 0.5 mg/dL (0.1-1.0); Bun/Creatinine Ratio 25.8 (12.0-20.0); Calcium, Blood 9.2 mg/dL (8.5-10.1); Creatinine, Blood 0.77 mg/dL (0.40-1.00); Globulin, Blood 4.1 g/dL (2.2-4.0); Potassium, Blood 4.2 mmol/L (3.5-5.5); Total Protein, Blood 7.8 g/dL (6.4-8.2)
[2023-12-13 17:16] VITALS: BP 110/73
== END 2023-12-13 17:47 | disposition home or self-care (01) ==
LOC: ER 15:00
PROVIDERS: Student in an Organized Health Care Education/Training Program
DX: R42 Dizziness and giddiness (principal); M54.2 Cervicalgia
CPT/HCPCS: 71046; 80053; 85025; 93005; 93010; 99284-25

== ENCOUNTER → 2024-10-18 | Outpatient (CLI) | payer OTHER ==
[2024-10-25 13:26] LABS: CALCIUM, URINE - PER 24H 163 mg/d (100-250); CALCIUM, URINE - PER VOLUME 7.1 mg/dL; CHLORIDE, URINE - PER 24H 69 mmol/d (140-250); CHLORIDE, URINE - PER VOLUME 30 mmol/L; CITRIC ACID, URINE - PER 24H 154 mg/d (320-1240); CITRIC ACID,URINE - PER VOLUME 67 mg/L; CREATININE, URINE - PER 24H 1125 mg/d (500-1400); CREATININE, URINE - PER VOLUME 49 mg/dL; HOURS COLLECTED 23 hr; MAGNESIUM, URINE - PER VOLUME 4.6 mg/dL; MAGNESIUM, URINE PER 24H 106 mg/d (12-199); OXALATE, URINE - PER 24H 69 mg/d (13-40); OXALATE, URINE - PER VOLUME 30 mg/L; PH, URINE 5.86 (5.00-7.50); PHOSPHORUS, URINE - PER 24H 643 mg/d (400-1300); PHOSPHORUS, URINE - PER VOLUME 28 mg/dL; POTASSIUM, URINE - PER 24H 30 mmol/d (25-125); POTASSIUM, URINE - PER VOLUME 13 mmol/L; SODIUM, URINE - PER 24H 69 mmol/d (51-286); SODIUM, URINE - PER VOLUME 30 mmol/L; SULFATE, URINE - PER 24H < 5 mmol/d (6-30); SULFATE, URINE - PER VOLUME <5 mmol/L; TOTAL VOLUME 2200 mL; URIC ACID, URINE - PER 24H 354 mg/d (250-750); URIC ACID, URINE - PER VOLUME 15.4 mg/dL; URINE SUPERSATURATION INTERP Abnormal; URINE SUPERSATURATION, CAHPO4 0.82; URINE SUPERSATURATION, CAOX 11.08; URINE SUPERSATURATION, UA CALC 0.33
== END ==
LOC: LAB 08:30 → LAB SHORT 08:30 → EDSTATUS 09-01 08:30 → LAB FUT 09-01 08:30
PROVIDERS: Urology
DX: R82.991 Hypocitraturia (principal)
CPT/HCPCS: 81003; 81050; 82131; 82140; 82340; 82436; 82507; 82570; 83735; 83935; 83945; 84105; 84133; 84300; 84392; 84560

== ENCOUNTER → 2024-11-08 | Outpatient (CLI) | payer OTHER ==
[2024-11-08 13:06] LABS: Percent Saturation 23.6 % (15.0-50.0)
== END ==
LOC: LAB 11:47 → LAB SHORT 11:47
DX: G25.81 Restless legs syndrome (principal); Z98.84 Bariatric surgery status
CPT/HCPCS: 82728; 83540; 83550

== ENCOUNTER → 2025-02-02 | Outpatient (CLI) | payer OTHER ==
[2025-02-07 11:35] LABS: CALCIUM, URINE - PER 24H 213 mg/d (100-250); CALCIUM, URINE - PER VOLUME 12.9 mg/dL; CHLORIDE, URINE - PER 24H 186 mmol/d (140-250); CHLORIDE, URINE - PER VOLUME 113 mmol/L; CITRIC ACID, URINE - PER 24H 127 mg/d (320-1240); CITRIC ACID,URINE - PER VOLUME 77 mg/L; CREATININE, URINE - PER 24H 1056 mg/d (500-1400); CREATININE, URINE - PER VOLUME 64 mg/dL; HOURS COLLECTED 24 hr; MAGNESIUM, URINE - PER VOLUME 7.3 mg/dL; MAGNESIUM, URINE PER 24H 120 mg/d (12-199); OXALATE, URINE - PER 24H 56 mg/d (13-40); OXALATE, URINE - PER VOLUME 34 mg/L; PH, URINE 5.94 (5.00-7.50); PHOSPHORUS, URINE - PER 24H 742 mg/d (400-1300); PHOSPHORUS, URINE - PER VOLUME 45 mg/dL; POTASSIUM, URINE - PER 24H 35 mmol/d (25-125); POTASSIUM, URINE - PER VOLUME 21 mmol/L; SODIUM, URINE - PER 24H 172 mmol/d (51-286); SODIUM, URINE - PER VOLUME 104 mmol/L; SULFATE, URINE - PER 24H < 5 mmol/d (6-30); SULFATE, URINE - PER VOLUME <5 mmol/L; TOTAL VOLUME 1650 mL; URIC ACID, URINE - PER 24H 398 mg/d (250-750); URIC ACID, URINE - PER VOLUME 24.1 mg/dL; URINE SUPERSATURATION INTERP Abnormal; URINE SUPERSATURATION, CAHPO4 2.11; URINE SUPERSATURATION, CAOX 13.66; URINE SUPERSATURATION, UA CALC 0.42
== END ==
LOC: LAB 09:00 → LAB SHORT 09:00 → EDSTATUS 01-25 07:00 → LAB FUT 01-25 07:00
PROVIDERS: Nurse Practitioner Acute Care
DX: N20.2 Calculus of kidney with calculus of ureter (principal)
CPT/HCPCS: 81003; 81050; 82131; 82140; 82340; 82436; 82507; 82570; 83735; 83935; 83945; 84105; 84133; 84300; 84392; 84560

== ENCOUNTER → 2025-06-28 | Outpatient (CLI) | payer OTHER ==
[2025-07-04 14:01] LABS: CALCIUM, URINE - PER 24H 258 mg/d (100-250); CALCIUM, URINE - PER VOLUME 8.6 mg/dL; CHLORIDE, URINE - PER 24H 300 mmol/d (140-250); CHLORIDE, URINE - PER VOLUME 100 mmol/L; CITRIC ACID, URINE - PER 24H 84 mg/d (320-1240); CITRIC ACID,URINE - PER VOLUME 28 mg/L; CREATININE, URINE - PER 24H 990 mg/d (500-1400); CREATININE, URINE - PER VOLUME 33 mg/dL; HOURS COLLECTED 24 hr; MAGNESIUM, URINE - PER VOLUME 5.9 mg/dL; MAGNESIUM, URINE PER 24H 177 mg/d (12-199); OXALATE, URINE - PER 24H 138 mg/d (13-40); OXALATE, URINE - PER VOLUME 46 mg/L; PHOSPHORUS, URINE - PER 24H 870 mg/d (400-1300); PHOSPHORUS, URINE - PER VOLUME 29 mg/dL; POTASSIUM, URINE - PER 24H 54 mmol/d (25-125); POTASSIUM, URINE - PER VOLUME 18 mmol/L; SODIUM, URINE - PER 24H 273 mmol/d (51-286); SODIUM, URINE - PER VOLUME 91 mmol/L; SULFATE, URINE - PER 24H < 5 mmol/d (6-30); SULFATE, URINE - PER VOLUME <5 mmol/L; URIC ACID, URINE - PER 24H 477 mg/d (250-750); URIC ACID, URINE - PER VOLUME 15.9 mg/dL; URINE SUPERSATURATION INTERP Abnormal; URINE SUPERSATURATION, CAHPO4 0.52; URINE SUPERSATURATION, CAOX 14.87; URINE SUPERSATURATION, UA CALC 0.49
== END ==
LOC: LAB SHORT 07:00 → LAB 07:00
PROVIDERS: Urology
DX: N20.2 Calculus of kidney with calculus of ureter (principal)
CPT/HCPCS: 81003; 81050; 82131; 82140; 82340; 82436; 82507; 82570; 83735; 83935; 83945; 84105; 84133; 84300; 84392; 84560